=== PATIENT | male | born 1990 | race Two or more races ===

== ENCOUNTER 2023-01-11 20:41 | Emergency (ER) | payer OTHER ==
[2023-01-11 20:52] VITALS: BP 131/73; PULSE 56; RESP 19; TEMP 98.3; BMI 29.6
[2023-01-11] MEDS ORDERED: hydrOXYzine PAMOATE 25 MG CAPSULE (FP) PO ONE (22:32)
== END 2023-01-11 22:41 | disposition home or self-care (01) ==
LOC: JERFT 20:41
DX: L25.5 Unspecified contact dermatitis due to plants, except food (principal); R21 Rash and other nonspecific skin eruption; L29.9 Pruritus, unspecified
CPT/HCPCS: 99283-25